=== PATIENT | female | born 1990 | race Caucasian/White ===

== ENCOUNTER → 2017-07-06 12:27 | Outpatient (CLI) | payer MEDICAID ==
[~2017-07-06 12:27] MED LIST: HYDROCODONE-APA1 TAB PO; IBUPROFEN600 MG PO; PERCOCET 10/3251 TA1 PO; PRENATAL COMPLE1 TAB PO
[2017-07-15 17:16] VITALS: BMI 44.0
== END | disposition home or self-care (01) ==
LOC: D.LDO 12:27
DX: O16.3 Unspecified maternal hypertension, third trimester (principal); Z3A.37 37 weeks gestation of pregnancy

== ENCOUNTER 2017-07-15 11:27 | Inpatient (IN) | payer MEDICAID ==
[2017-07-15] VITALS (12 sets, daily range): BP systolic 125–161; BP diastolic 68–87; Ht 160 cm; Wt 112.5 kg
[~2017-07-15] VITALS: Ht 160 cm; Wt 112.5 kg
--- NOTE | ~2017-07-15 | OP ---
PATIENT NAME: JARRET GARCIA MEDICAL RECORD: [id number] :88 LOCATION:[id number] ADMISSION DATE:07/15/17 SURGEON: JAUN HENRY MD DATE OF OPERATION: 07/15/2017 PREOPERATIVE DIAGNOSES: 1. Term intrauterine at 39 weeks. 2. History of previous section. 3. Gestational hypertension. POSTOPERATIVE DIAGNOSES: 1. Term intrauterine at 39 weeks. 2. History of previous section. 3. Gestational hypertension. PROCEDURES: Repeat low transverse section and bilateral distal salpingectomy. SURGEON: Jaun Henry MD ESTIMATED BLOOD LOSS: 1000 cc. INTRAVENOUS FLUIDS: Per anesthesia record. SPECIMENS: Placenta, cord for gases, and partial segments of fallopian tube. COMPLICATIONS: None apparent. FINDINGS: 1. Viable infant, Apgars 9 at 1 and 9 at 5. 2. Placenta delivered manually intact, 3-vessel cord noted. 3. Grossly normal adnexa bilaterally. DESCRIPTION OF PROCEDURE: The patient was taken to the operating room where regional anesthesia was achieved without difficulty via spinal. The patient was then prepped and draped in normal sterile fashion in the dorsal supine position. A Ferguson catheter had been placed and was draining freely. SCDs were on and functioning appropriately. At this point, a repeat Pfannenstiel skin incision was made, extended downward to the underlying subcutaneous fat to the level of the fascia, which was then excised in the midline and carefully dissected laterally using the Hodge scissors. Superior and inferior aspects of the fascial incision were then grasped with Radha clamps times 2, tented upward, and sharply dissected from the underlying rectus muscle using the Hodge scissors and Bovie cautery. At this point, the rectus muscles were then in the midline and the peritoneum was entered superiorly at the superior aspect of the incision using the Metzenbaum scissors. Peritoneal incision was extended bilaterally using the Metzenbaum scissors. Careful dissection to the level of the bladder was performed. At this point, a bladder blade was placed into the pelvis. A bladder flap was created by excising the anterior leaf of the broad ligament across the lower uterine segment. A low transverse incision was made and upon entry into the uterus, the uterine incision was extended superiorly and inferiorly using the Pelosi method. At this point, the 's head was delivered atraumatically followed by the body. The was bulb suctioned upon delivery. Cord was clamped times 2 and cut and the was handed to the awaiting nursery team. Cord was then obtained for gases, placenta was OPERATIVE REPORT [id number] JARRET GARCIA removed manually intact, 3-vessel cord was noted. Uterus was then exteriorized, cleared of all clots and debris and vigorously massaged until a good uterine tone was noted. The uterine incision was then repaired with 0 Vicryl in a running locked fashion times 2 with good hemostasis noted. Attention was then turned to the bilateral fallopian tubes. An avascular area of the mesosalpinx was identified and entered, a defect was made using the Bovie cautery. At this point, a Shanika clamp was placed across the mesosalpinx inferior to the fimbriated end of the tube. A second Shanika clamp was placed at approximately the mid portion of the tube. The clamp was placed across the tube into the same defect. At this point, the distal fallopian tube with fimbria was removed using the Metzenbaum scissors. This was performed bilaterally and the pedicles including the tubal stumps were oversewn with 2-0 Vicryl in first a free tie and then a locked suture with good hemostasis noted. Posterior cul-de-sac was then thoroughly irrigated and the uterus was then replaced into the pelvis. The anterior cul-de-sac was then irrigated and good hemostasis was noted from the uterine incision. Counts were correct times 2 for needles, sponges, and instruments. The fascia was then repaired with 0 loop PDS times 1 and the skin repaired with mary. The patient tolerated the procedure well and was transferred to the postanesthesia recovery stable without incident. TRANSINT:[id number] Voice Confirmation ID: [id number] DOCUMENT ID: [id number] JAUN HENRY MD at 1328 CC: [id number] DICTATION DATE: 07/16/17 034 MEAT CLERK: 07/16/17 1228 DIS IN 07/17/17 [facility] [address] [place] [address]
[~2017-07-15 11:27] MED LIST changes: -HYDROCODONE-APA1 TAB PO
[2017-07-15 12:21] LABS: BASOPHILS 0.1 % (0-2); EOSINOPHILS 0.2 % (0-7); HEMATOCRIT 37.3 % (36.0-48.0); HEMOGLOBIN 13.1 g/dL (12-16); IMMATURE GRANULOCYTES 0.3 % (0-5); LYMPHOCYTES 17.8 % (15-50); MCH 31.5 pg (26.0-34.0); MCHC 35.1 g/dL (31.0-37.0); MCV 89.7 fL (80.0-100.0); MEAN PLATELET VOLUME 9.4 fL (7.4-10.4); MONOCYTES 9.8 % (2-11); NEUTROPHILS 71.8 % (40-80); RBC 4.16 10x6/uL (4.00-5.40); RDW 13.7 % (11.5-14.5); WBC 9.8 10x3/uL (4.8-10.8)
[2017-07-15 12:23] LABS: PLATELET COUNT 327 10x3/uL (130-400)
[2017-07-15 12:31] LABS: APPEARANCE HAZY (CLEAR); BILIRUBIN NEGATIVE (NEGATIVE); COLOR STRAW (YELLOW); GLUCOSE NEGATIVE (NEGATIVE); KETONE NEGATIVE (NEGATIVE); NITRITE NEGATIVE (NEGATIVE); PROTEIN NEGATIVE (NEGATIVE); SPECIFIC GRAVITY 1.015 (1.005-1.020); UROBILINOGEN NORMAL (NORMAL)
[2017-07-15 12:34] LABS: BACTERIA MODERATE /hpf (NONE SEEN); RED CELLS - URINE NONE SEEN /hpf (0-5); WHITE CELLS - URINE 0-5 /hpf (0-5)
[2017-07-15 12:37] LABS: CALC OSMOLALITY 273 mosm/kg (275-300); CREATININE - SERUM 0.6 mg/dL (0.6-1.3); GLUCOSE 80 mg/dL (74-106); SODIUM 139 mmol/L (136-145); UREA NITROGEN 5 mg/dL (7-18); eGFR NON AFRICAN AMERICAN > 90 mL/min (90-120)
[2017-07-15 12:38] LABS: ALBUMIN 2.3 g/dL (3.4-5.0); ALKALINE PHOSPHATASE 136 U/L (46-116); ALT (SGPT) 30 U/L (10-68); BILIRUBIN - DIRECT 0.06 mg/dL (0.00-0.30); BILIRUBIN - INDIRECT 0.22 mg/dL (0.00-1.00); BILIRUBIN - TOTAL 0.28 mg/dL (0.2-1.3); CALCIUM 8.9 mg/dL (8.5-10.1); CARBON DIOXIDE 27.3 mmol/L (21.0-32.0); CHLORIDE - SERUM 105 mmol/L (98-107); URIC ACID 4.3 mg/dL (2.6-7.2)
[2017-07-15 12:42] LABS: POTASSIUM - SERUM 2.6 mmol/L (3.5-5.1)
[2017-07-16 00:25] VITALS: BP 134/80
[2017-07-16 01:25] VITALS: BP 136/74
[2017-07-16 04:33] VITALS: BP 131/78
[2017-07-16 06:41] LABS: BASOPHILS 0.1 % (0-2); EOSINOPHILS 0.2 % (0-7); HEMATOCRIT 35.1 % (36.0-48.0); HEMOGLOBIN 12.3 g/dL (12-16); IMMATURE GRANULOCYTES 0.4 % (0-5); LYMPHOCYTES 9.2 % (15-50); MCH 31.6 pg (26.0-34.0); MCV 90.2 fL (80.0-100.0); MEAN PLATELET VOLUME 9.3 fL (7.4-10.4); MONOCYTES 8.5 % (2-11); NEUTROPHILS 81.6 % (40-80); PLATELET COUNT 270 10x3/uL (130-400); RBC 3.89 10x6/uL (4.00-5.40)
[2017-07-16 07:19] LABS: RAPID PLASMA REAGIN Non Reactive (Non Reactive)
[2017-07-16 08:02] VITALS: BP 130/74
[2017-07-16 14:59] LABS: BASOPHILS 0.1 % (0-2); EOSINOPHILS 0.4 % (0-7); HEMATOCRIT 35.5 % (36.0-48.0); HEMOGLOBIN 12.4 g/dL (12-16); IMMATURE GRANULOCYTES 0.3 % (0-5); LYMPHOCYTES 13.1 % (15-50); MCH 31.7 pg (26.0-34.0); MCHC 34.9 g/dL (31.0-37.0); MCV 90.8 fL (80.0-100.0); MEAN PLATELET VOLUME 9.5 fL (7.4-10.4); MONOCYTES 8.6 % (2-11); NEUTROPHILS 77.5 % (40-80); PLATELET COUNT 302 10x3/uL (130-400); RBC 3.91 10x6/uL (4.00-5.40); RDW 14.2 % (11.5-14.5); WBC 14.3 10x3/uL (4.8-10.8)
[2017-07-16 20:20] VITALS: BP 158/88
[2017-07-17 00:05] VITALS: BP 145/84
[2017-07-17 04:18] VITALS: BP 148/84
[2017-07-17] MEDS ORDERED: HYDROCODONE-APA1 TAB PO (11:17)
[2017-07-17] MEDS ORDERED: IBUPROFEN600 MG PO (11:18)
== END 2017-07-17 14:45 | disposition home or self-care (01) | DRG 765 ==
LOC: D.LDO 11:27 → D.LD 14:37
PROVIDERS: Obstetrics & Gynecology
PROC: 10D00Z1 Extraction of Products of Conception, Low, Open Approach (ICD-10-PCS; principal; 2017-07-15 15:00)
PROC: 0UB70ZZ Excision of Bilateral Fallopian Tubes, Open Approach (ICD-10-PCS; 2017-07-15 15:00)
DX: O13.4 Gestational [pregnancy-induced] hypertension without significant proteinuria, complicating childbirth (principal); Z68.41 Body mass index [BMI] 40.0-44.9, adult; E66.9 Obesity, unspecified; O34.211 Maternal care for low transverse scar from previous cesarean delivery; Z3A.39 39 weeks gestation of pregnancy; Z37.0 Single live birth; E87.6 Hypokalemia; Z30.2 Encounter for sterilization

== ENCOUNTER 2017-12-09 20:09 | Emergency (ER) | payer OTHER ==
[2017-07-15 17:16] VITALS: BMI 44.0
[~2017-12-09 20:09] MED LIST changes: +HYDROCODONE-APA1 TAB PO
[2017-12-09 20:52] LABS: APPEARANCE HAZY (CLEAR); BILIRUBIN NEGATIVE (NEGATIVE); COLOR RED (YELLOW); EPITHELIAL CELLS 0-5 /hpf (0-5); GLUCOSE NEGATIVE (NEGATIVE); KETONE NEGATIVE (NEGATIVE); NITRITE POSITIVE (NEGATIVE); PROTEIN 1+ mg/dL (NEGATIVE); RED CELLS - URINE >50 /hpf (0-5); UROBILINOGEN NORMAL (NORMAL); WHITE CELLS - URINE 25-50 /hpf (0-5)
[2017-12-09 20:53] LABS: BACTERIA MODERATE /hpf (NONE SEEN)
== END 2017-12-09 22:53 | disposition home or self-care (01) ==
LOC: D.ER 20:09
PROVIDERS: Family Medicine
DX: N39.0 Urinary tract infection, site not specified (principal); I10 Essential (primary) hypertension

== ENCOUNTER → 2018-08-09 10:44 | Outpatient (CLI) | payer OTHER ==
[2017-07-15 17:16] VITALS: BMI 44.0
== END | disposition home or self-care (01) ==
LOC: D.CT 10:44
DX: R10.2 Pelvic and perineal pain (principal)